=== PATIENT | male | born 1950 | race Caucasian/White ===

== ENCOUNTER 2024-07-18 06:51 | Observation (INO) ==
--- NOTE | 2024-06-19 11:07 | PAT Medication Instructions ---
Medication Instructions Date of Service June 19, 2024 Home Medications Medication Instructions Recorded albuterol sulfate 90 mcg/actuation 2 inh inhalation QID PRN shortness 04/21/24 aerosol inhaler of breath or wheezing #8.5 grams gabapentin 400 mg capsule 400 mg PO BID #60 caps 04/21/24 tramadol 50 mg tablet 50 mg PO Q4H PRN pain #120 tabs 04/21/24 Wheeled Walker #1 ea 06/09/24 albuterol sulfate 90 mcg/actuation aerosol inhaler 2 inh inhalation QID PRN shortness of breath or wheezing aspirin 81 mg tablet,delayed release (Adult Low Dose Aspirin) 81 mg PO QPM atorvastatin 80 mg tablet 80 mg PO QPM etodolac 500 mg tablet 500 mg PO BID gabapentin 400 mg capsule 400 mg PO BID primidone 50 mg tablet 100 mg PO BID tamsulosin 0.4 mg capsule 0.4 mg PO HS tramadol 50 mg tablet 50 mg PO Q4H PRN pain dutasteride 0.5 mg capsule 0.5 mg PO QPM ASK your surgeon for instructions etodolac 500 mg tablet 500 mg PO BID ASK your prescriber and surgeon aspirin 81 mg tablet,delayed release (Adult Low Dose Aspirin) 81 mg PO QPM Take morning of surgery With a small sip of water, OTHERWISE NOTHING TO EAT OR DRINK AFTER MIDNIGHT: albuterol sulfate 90 mcg/actuation aerosol inhaler 2 inh inhalation QID PRN shortness of breath or wheezing (use if needed; please bring rescue inhaler with you to hospital day of surgery if possible) gabapentin 400 mg capsule 400 mg PO BID primidone 50 mg tablet 100 mg PO BID tramadol 50 mg tablet 50 mg PO Q4H PRN pain (if needed) Take evening before surgery albuterol sulfate 90 mcg/actuation aerosol inhaler 2 inh inhalation QID PRN shortness of breath or wheezing (if needed) atorvastatin 80 mg tablet 80 mg PO QPM gabapentin 400 mg capsule 400 mg PO BID primidone 50 mg tablet 100 mg PO BID tamsulosin 0.4 mg capsule 0.4 mg PO HS tramadol 50 mg tablet 50 mg PO Q4H PRN pain (if needed) dutasteride 0.5 mg capsule 0.5 mg PO QPM Other Notes If you have any questions please call us at [phone] or [phone] or [phone] or [phone]
--- NOTE | 2024-06-27 09:34 | Anesthesiology Consultation ---
Date of Service June 27, 2024 Assessment & Plan (1) Encounter for pre-operative examination: - Infectious disease screening: Per assessment on 06/27/24- No known recent infectious disease contacts or current infectious disease symptoms. - Outpatient joint assessment: Pt currently scheduled for inpatient pathway. If surgeon requests review for outpatient joint pathway, patient is not recommended candidate for outpatient joint program from anesthesia standpoint based on available information. Chart Review Chart Review: Acceptable Risk for Surgery and Patient seen in Pre Admission Testing Teaching & Discussion Pre-Anesthesia Teaching/Discussion Notes: Instructed NPO after midnight before surgery,except medications with 15 cc of water. Medication instructions provided according to the PAT guidelines. History Surgery Operation Date: 07/18/24 12:30 Proposed Procedures p Left Total Knee Arthroplasty - Scottie Chapin MD Height/Weight Height: 5 ft 9 in Weight: 103.4 kg Allergies Allergy/AdvReac Type Severity Reaction Status Date / Time Iodinated Contrast Media AdvReac Sweating, Verified 06/24/24 11:53 "woozy" Medications Home Medications Medication Instructions Recorded Confirmed Last Taken albuterol sulfate 90 mcg/actuation 2 inh inhalation QID PRN shortness 04/21/24 06/19/24 Unknown aerosol inhaler of breath or wheezing #8.5 grams aspirin 81 mg tablet,delayed 81 mg PO QPM 04/21/24 06/19/24 Unknown release (Adult Low Dose Aspirin) atorvastatin 80 mg tablet 80 mg PO QPM 04/21/24 06/19/24 Unknown etodolac 500 mg tablet 500 mg PO BID 04/21/24 06/19/24 Unknown gabapentin 400 mg capsule 400 mg PO BID #60 caps 04/21/24 06/19/24 Unknown primidone 50 mg tablet 100 mg PO BID 04/21/24 06/19/24 Unknown tamsulosin 0.4 mg capsule 0.4 mg PO HS 04/21/24 06/19/24 Unknown tramadol 50 mg tablet 50 mg PO Q4H PRN pain #120 tabs 04/21/24 06/19/24 Unknown Wheeled Walker #1 ea 06/09/24 Unknown dutasteride 0.5 mg capsule 0.5 mg PO QPM 06/19/24 06/19/24 Unknown Past Medical History Medical History BPH (benign prostatic hyperplasia) Emphysema lung Essential tremor Hands H/O asbestos exposure History of elevated PSA History of stroke ~2020, "in his eye" No residual effects Reason for aspirin Hx of diverticulitis of colon no recent issues Hx of gastroesophageal reflux (GERD) Hx of hyperlipidemia NITIN on CPAP Compliant Exercise / Class Metabolic Activity II 4-5 Yardwork/Stairs/Walk up hill Past Family History Family History Son Asthma Father Prostate cancer Lung cancer Coronary heart disease Diabetes Dyslipidemia Heart disease Hypertension Lung disease Other Cancer Denies family history of Rheumatoid arthritis Sudden SIDS (sudden syndrome) Ovarian cancer Deep vein thrombosis Osteoporosis Cerebral aneurysm Alzheimer disease Bipolar disorder Clotting disorder Crohn's disease Dementia Depression Kidney disease Myocardial infarction Osteoarthritis Breast cancer Schizophrenia Congenital kidney disease Gestational diabetes COPD (chronic obstructive pulmonary disease) Colorectal cancer Pulmonary embolism Ulcerative colitis Colonic polyp Stroke Cystic kidney disease Past Surgical History Surgical History History of ear surgery "years ago," left Hx of arthroscopy of left knee Hx of colonoscopy Past Anesthesia History No Hx of Anesthesia Complications and No Family Hx of Anesthesia Complications History of PONV No Hx of PONV and No Hx of Motion Sickness Social History Smoking Status: Current every day smoker Smoking cigarettes per day: 10 cigs/day Do You Dip or Chew Tobacco: No Hx Alcohol Use: Yes alcohol intake frequency: other (very rarely) Hx Substance Use: No substance use type: does not use Review of Systems Patient denies chest pain, shortness of breath, dyspnea on exertion, fever, chills, cough, wheezing, palpitations. Physical Exam Vital Signs BP 125/77 P 67 TEMP 98.7 SP02 97%RA RESP 16 Physical Full cervical extension range of motion. Full TMJ range of motion. TMD > 3.5 finger breaths Mallampati Score II Dentition: intact Lungs: clear throughout to auscultation Cardiac: regular rate and rhythm, no murmurs noted Spine: normal Carotid arteries: negative bruit Extremities: no LE edema Lab Results Anesthesia Preop Results Results Anesthesia Widget: WBC 6.03 K/ul (4.8-10.8) 06/27/24 Hgb 17.0 g/dl (14.0-18.0) 06/27/24 Hct 49.0 % (42.0-52.0) 06/27/24 Plt 165 K/uL (130-400) 06/27/24 Na 141 mmol/L (136-145) 06/27/24 K 4.4 mmol/L (3.5-5.1) 06/27/24 Cl 110 mmol/L (98-107) H 06/27/24 CO2 27 mmol/L (21-32) 06/27/24 BUN 15 mg/dl (6-23) 06/27/24 Creat 0.86 mg/dl (0.6-1.4) 06/27/24 Glucose Level 95 mg/dl (70-99(Fasting)) 06/27/24 PT 10.4 Seconds (9.0-12.0) 06/27/24 PTT 29 Seconds (21-31) 06/27/24 INR 1.0 (0.9-1.1) 06/27/24 Blood Type A Positive 06/27/24 Antibody Screen NEGATIVE 06/27/24 Testing Electrocardiogram Date: 06/27/24 NSR at 60bpm. NS IVCD. Chest X-Ray Date: 06/27/24 FINDINGS: Heart size and pulmonary vasculature are normal. There are mild diffuse peripheral reticular opacities. No consolidation or pleural effusion. No pneumothorax. IMPRESSION: Mild pulmonary fibrosis. No acute pneumonia seen.
--- NOTE | 2024-07-12 09:58 | History & Physical Report ---
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 He is failed conservative measures and would like to proceed with left knee replacement. Plan: We are to take him to the operating room to do a left total knee replacement. The risks and benefits of this procedure explained. Informed consent was obtained. He will hold his NSAIDs that 10 days preop. Will use aspirin for DVT prophylaxis. He is planned to be discharged to home using the [facility] home health program. History of Present Illness Chief Complaint: . Persistent left knee pain and discomfort. Primary Care Provider: Marisel Mckee DO . 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 Got a long history of left knee pain discomfort described to gotten worse over time. He does have a history of a left knee arthroscopy done in [place] about 8 years ago. Over time he developed increased pain discomfort is in the left knee. Is global pain. The more he is up and on it the more it hurts. He takes anti-inflammatories with some degree of relief but still not acceptable. He has been through extensive conservative Allergies Allergy/AdvReac Type Severity Reaction Status Date / Time Iodinated Contrast Media AdvReac Sweating, Verified 07/11/24 10:36 "woozy" Home Medications Medication Instructions Recorded Confirmed Type albuterol sulfate 90 mcg/actuation 2 inh inhalation QID PRN shortness 04/21/24 07/11/24 Rx aerosol inhaler of breath or wheezing #8.5 grams aspirin 81 mg tablet,delayed 81 mg PO QPM 04/21/24 07/11/24 History release (Adult Low Dose Aspirin) atorvastatin 80 mg tablet 80 mg PO QPM 04/21/24 07/11/24 History etodolac 500 mg tablet 500 mg PO BID 04/21/24 07/11/24 History gabapentin 400 mg capsule 400 mg PO BID #60 caps 04/21/24 07/11/24 Rx primidone 50 mg tablet 100 mg PO BID 04/21/24 07/11/24 History tamsulosin 0.4 mg capsule 0.4 mg PO HS 04/21/24 07/11/24 History Wheeled Walker #1 ea 06/09/24 07/11/24 Rx dutasteride 0.5 mg capsule 0.5 mg PO QPM #90 caps 07/04/24 07/11/24 Rx tramadol 50 mg tablet 50 mg PO Q4H PRN pain #120 tabs 07/04/24 07/11/24 Rx Past Med/Surg History Problem List Encounter for pre-operative examination Degenerative arthritis of knee, bilateral BPH (benign prostatic hyperplasia) History of elevated PSA Essential tremor Emphysema lung NITIN on CPAP Diverticulitis Medical History History of stroke ~2019, "in his eye" No residual effects Reason for aspirin Hx of gastroesophageal reflux (GERD) Hx of hyperlipidemia NITIN on CPAP Compliant History of elevated PSA Essential tremor Hands Emphysema lung Hx of diverticulitis of colon no recent issues BPH (benign prostatic hyperplasia) H/O asbestos exposure Surgical History Hx of colonoscopy Hx of arthroscopy of left knee History of ear surgery "years ago," left Family History Son Asthma Father Prostate cancer Lung cancer Coronary heart disease Diabetes Dyslipidemia Heart disease Hypertension Lung disease Other Cancer Denies family history of Rheumatoid arthritis Sudden SIDS (sudden syndrome) Ovarian cancer Deep vein thrombosis Osteoporosis Cerebral aneurysm Alzheimer disease Bipolar disorder Clotting disorder Crohn's disease Dementia Depression Kidney disease Myocardial infarction Osteoarthritis Breast cancer Schizophrenia Congenital kidney disease Gestational diabetes COPD (chronic obstructive pulmonary disease) Colorectal cancer Pulmonary embolism Ulcerative colitis Colonic polyp Stroke Cystic kidney disease Social History Smoking Status: Current every day smoker Tobacco Type: Cigarettes Age Started Using Tobacco: 21; packs per day: 1; Cigarettes Per Day: 10 cigs/day; Second Hand Exposure: Yes (hx as child); Do You Dip or Chew Tobacco: No; Hx Alcohol Use: Yes Hx Substance Use: No Preferred Language: Sinhala Communication Ability: Effective Visual Impairment: Limited Hearing Ability: Normal Cushion Cover Inspector Required: No Beliefs That Will Affect Care: None marital status: Current Living Situation: Spouse Current Living Situation Comment: retired current occupational status: retired How many Children do You have: 2 Feels Safe at Home: Yes Childhood Exposure to Second-Hand Smoke: Yes Diet: regular caffeine: Yes during the past year weight has: remained stable Dental Care, Regularly: No Physical Activity Frequency: Does not Exercise Seatbelt Use: always Do you think of yourself as: straight/heterosexual Sexual Activity: has been sexually active within the last 12 months Gender Identity: Male Assistive Devices: CPAP and Glasses Review of Systems All systems reviewed & are unremarkable except as noted in HPI & below. Physical Exam . Physical examination reveals a pleasant middle-aged male. Examination of the left knee reveals slight varus alignment to his knee. He is tender over the medial joint line. A little bit of bony hypertrophy. Small knee effusion. Range of motion is about 5-1 25. No instability. No particular pain with hip motion. He is neurovascular intact. Constitutional WD/WN, vitals as above Neck trachea midline, no thyromegaly Respiratory normal respiratory effort, lungs clear to auscultation Cardiovascular RRR, no murmur, no edema Gastrointestinal (Abdomen) normal bowel sounds, soft, nontender, no hepatosplenomegaly Results & Data Results & Data Laboratory Results . Diagnostic Findings . X-rays left knee reviewed. She has advanced left knee DJD. Got tricompartment disease. Subchondral sclerosis. There is got complete loss of joint space medially. He is got similar but less severe disease of the right knee. PG Care Time/CCT Total # of Minutes Spent Total Time Spent with Patient: Total time spent is greater than 50% in coordination of care (as documented) at patient's floor/unit and/or counseling patient: Coding Level of Care Code None Diagnoses Degenerative arthritis of knee, bilateral M17.0
[~2024-07-18 06:51] MED LIST: BUPIVACAINE 0.5 % 5 MG/1 ML PF 10ML VIAL ONE; ROPIVACAINE 0.5% 5 MG/ML 30 ML VIAL ONE
--- NOTE | 2024-07-18 06:53 | History & Physical Bridge Note ---
Date of Service July 18, 2024 History & Physical Bridge Note I have examined the patient, reviewed the History & Physical and in the interval since the performance of the History & Physical I have noted the following changes of clinical significance: no changes noted
[2024-07-18] MEDS ORDERED: fentaNYL citrate PF 100 MCG/2 ML VIAL ONE (07:09)
[2024-07-18] MEDS ORDERED: MIDAZOLAM HCL 1 MG/ML 2ML VIAL ONE (07:09)
[2024-07-18] MEDS ORDERED: PROPOFOL IV EMULSION 10 MG/ML 20 ML VIAL IV ONE ×2 (07:09→09:42)
[2024-07-18] MEDS: ACETAMINOPHEN 500 MG TAB PO SCH ×2 (07:34→13:30)
[2024-07-18] MEDS: LR 500ML BOLUS, THEN 15ML/HR IV SCH (07:34)
[2024-07-18] MEDS: CeleBREX 200 MG CAP PO SCH (07:35)
[2024-07-18] MEDS: LR 60ML/HR IV SCH (07:35)
[2024-07-18] MEDS: dexAMETHasone**PF** 10 MG/ML VIAL IV SCH (07:35)
[2024-07-18] MEDS: METOCLOPRAMIDE HCL 10 MG TABLET PO SCH (07:35)
[2024-07-18] MEDS: FAMOTIDINE 20 MG TAB PO SCH (07:35)
[2024-07-18] MEDS ORDERED: ATROPINE SULFATE 0.1 MG/ML 10ML SYR IV PRN (08:41)
[2024-07-18] MEDS ORDERED: fentaNYL citrate PF 100 MCG/2 ML VIAL IV PRN (08:41)
[2024-07-18] MEDS ORDERED: ONDANSETRON INJ 2 MG/ML 2 ML VIAL IV PRN ×2 (08:41→12:57)
[2024-07-18] MEDS ORDERED: ePHEDrine sulfate 50 MG/ML AMP IV PRN (08:41)
[2024-07-18] MEDS: ceFAZolin 2000MG 2,000 MG/15 ML SYR IV SCH ×2 (09:32→17:44)
[2024-07-18] MEDS ORDERED: ONDANSETRON INJ 2 MG/ML 2 ML VIAL ONE (09:40)
[2024-07-18] MEDS ORDERED: ePHEDrine sulfate 50 MG/5 ML SYR ONE (09:47)
[2024-07-18] MEDS: ROPIV 0.5% 246mg, Ketorolac 30mg, EPINEPHrine 0.5mg in NSS INFIL SCH (10:10)
[2024-07-18] MEDS: ORTHO JOINT ANESTHETIC ONE (10:11)
[2024-07-18] MEDS: TRANEXAMIC ACID 1,000 MG **IV Intra-op IV SCH (10:33)
--- NOTE | 2024-07-18 11:42 | Operative Report ---
PG Post Operative Report Pre & Post Diagnosis Operation Date: 07/18/24 08:50 Pre-Op Diagnosis: Left Knee Degenerative Joint Disease Post-Op Diagnosis: Left Knee Degenerative Joint Disease I identified the patient and participated in the time-out.: Yes Procedure Operation Date: 07/18/24 08:50 Actual Procedures p Left Total Knee Arthroplasty(Left) - Scottie Chapin MD Surgeon Scottie Chapin MD Patch Sander Raymundo Fritz PA-C Estimated Blood Loss 50 Findings Consistent with Post-Op Diagnosis It did appear he had some degree of a vast necrosis of the medial femoral condyle with full-thickness cartilage loss. Dressing knee was fairly standard grade 4 [id number] disease particularly medially. Specimens Left knee sent for pathology. Anesthesia Type Spinal MAC Complications none Disposition Accompanied Patient To Recovery: No Indications Patient is a 73-year-old active gentleman who has a history of gradual progressive increasing pain and discomfort in both knees left side a bit worse than the right. Does have a history of a knee arthroscopy done 8 years ago. He failed all conservative measures. X-rays show advanced knee DJD. He elected proceed with total knee arthroplasty. Description of Procedure Operative implants consist of: 1. Biomet Vanguard size 72.5 left posterior stabilized femoral component. 2. Biomet size 79 tibial tray. 3. 12 mm posterior stabilized polyethylene insert. 4. 31 x 8 all poly patella. The patient was taken to the op room, identified, placed on the operating table in the supine position. All contact areas were appropriately padded. IV antibiotics fibra anesthesia team. Spinal anesthetic and adductor canal block had been provided in the holding area. A left thigh tent was then placed. Left lower extremities then prepped and draped in usual sterile fashion. The left leg was elevated and exsanguinated with use of an Esmarch and a turn was placed at 300 mmHg. An anterior approach to the left knee was then performed to longitudinal incision centered over the patella. Sharp dissection was got through subcutaneous tissue down the extensor mechanism. A medial parapatellar arthrotomy incision was made. Some subperiosteal dissection was carried out medially. The fat pad was dissected from Neath patella tendon. The lateral patellofemoral ligament was released. Patella subluxated laterally and the knee was flexed. The osteophytes taken off distal femur. The ACL and PCL were then released from distal femur and the tibia subluxated anteriorly. The external treatment LYMErix then placed on the anterior face the tibia and adjusted 14 mm medially. Proximal tibial cut was made remove out of millimeter or 2 of bone from most efficient aspect medial tibial plateau. The tibia sized to a size 79. Attention drawn the femur. The distal femur then with a sharp drill. Intramedullary canal was suction. A left 6 degree valgus cutting guide was placed. The distal femoral cutting block was pinned in place. Distal femoral cut was made to take an additional 3 mm of bone off distal femur. The femur was then sized to a size 72.5. The AP cutting block was pinned parallel to the epicondylar axis which was 5 degrees of external rotation. The anterior cut, anterior chamfer, posterior cut, posterior chamfer cuts were made. The box cutting guide was placed in the just slight lateral and the box cut was made. The knee was flexed. The remnants of the medial and lateral menisci were excised. The osteophytes taken off the posterior aspect the femur. A trial femoral component was placed. The tibial tray was pinned in Sunni external rotation and the drill and stem punch use great defect in proximal tibia for the tibial tray. The knee was then trialed and the 12 mm insert fit most appropriately. Attention drawn the patella. The patella was cleaned of all soft tissues. Patella thickness measured 24 mm in thickness was cut down to 14. Was sized to a size 31 patella. The lug holes were drilled for 31 patella. The lateral osteophytes removed. Patella button was placed. Knee was taken through range of motion patella tracked nicely with no thumbs test. Attention was then drawn toward placement permanent components. NuPrep all trial components were removed. Bone plug was placed in the distal femur plate a double batch Palacos G cement was mixed. Biomet Vanguard size 72.5 left posterior stabilized femoral component, a size 79 tibial tray, 12 mm posterior Byce polyethylene insert, and a 31 x 8 all poly patella then cemented in place. The knee was brought out into full extension till cement hardened. Final cement check was then performed. The pericapsular tissues were injected with a total of 100 cc of Ortho mix. The patient did receive 1 g tranexamic ac id. The tourniquet was then let down for final tourniquet time of 70 minutes. Hemostasis surgeries electrocautery. Extensor Meclomen then closed with combination 1 PDS suture #1 Vicryl suture in a [id number] fashion. Extensor Meclomen checked found to be intact with subcutaneous tissue then closed with 2 Dexon suture in a buried interrupted fashion skin was closed skin katie. Leg was then cleaned and dried and sterile dressed with Xeroform, 4 fours, sterile cast padding, Brent bandage were applied. Patient was then transferred to the recovery room in stable condition. Patient tolerated procedure well and there were no complications. Raymundo Fritz, my physician diploma medical assistant, was present for the entire procedure. His assistance was required for proper patient positioning, prepping and draping, surgical exposure, retraction, perform the technical details of the operation, placement of the implants, closure of the incision site and placement of postoperative sterile bandage. I attest to the content of the Intraoperative Record and any orders documented therein. Any exceptions are noted below.
--- NOTE | 2024-07-18 12:25 | Anesthesiology Progress Note ---
Date of Service July 18, 2024 Anesthesia Post Procedure Vital Signs Vital Signs: Temp Pulse Resp BP Pulse Ox O2 Del Method O2 Flow Rate 07/18/24 12:15 72 14 115/75 94 Nasal Cannula 2 07/18/24 12:00 67 16 110/69 93 Nasal Cannula 2 07/18/24 11:50 36.4 C L 73 16 121/71 94 Nasal Cannula 2 07/18/24 11:40 80 18 99/70 L 93 Nasal Cannula 3 07/18/24 11:30 36.6 C 82 16 100/60 94 Nasal Cannula 3 07/18/24 07:10 36.4 C L 66 24 137/81 94 Room Air Notes Mental Status: alert / awake / arousable Patient Amnestic to Procedure: Yes Nausea / Vomiting: adequately controlled Pain: adequately controlled Airway Patency, RR, SpO2: stable & adequate BP & HR: stable & adequate Hydration State: stable & adequate Neuraxial Anesthesia: was administered and sensory block is resolving Anesthetic Complications: no major complications apparent
--- NOTE | 2024-07-18 12:41 | XRay Report ---
XR knee LT 1 or 2V routine CLINICAL HISTORY: Surgical Post Op COMPARISON: None FINDINGS: Left knee prosthesis shows no hardware complication. There is expected soft tissue gas. Sk in katie are present. IMPRESSION: Unremarkable postoperative exam. ACT 112: Negative or not required by law. Electronically signed by: Colin Abdi M.D. 07/18/2024 12:39 PM
[2024-07-18] MEDS ORDERED: bisacodyL 10 MG SUPP PR PRN (12:57)
[2024-07-18] MEDS ORDERED: MAGNESIUM HYDROXIDE SUSP 30 ML UDC PO PRN (12:57)
[2024-07-18] MEDS ORDERED: ALUMINUM/MAGNESIUM SUSP 30 ML UDC PO PRN (12:57)
[2024-07-18] MEDS ORDERED: ALBUTEROL HFA 8 GM INHALER INH PRN (12:57)
[2024-07-18] MEDS ORDERED: HYDROmorphone INJ 0.5 MG/0.5 ML SYR IV PRN (12:57)
[2024-07-18] MEDS ORDERED: METOCLOPRAMIDE HCL INJ 5 MG/ML 2 ML VIAL IV PRN (12:57)
[2024-07-18] MEDS ORDERED: NALOXONE HCL 0.4 MG/1 ML VIAL/CARP IV PRN (12:57)
[2024-07-18] MEDS: KETOROLAC TROMETHAMINE 15 MG/ML VIAL IV SCH (13:30)
[2024-07-18] MEDS: KETOROLAC 30 MG/ML VIAL ONE (13:52)
[2024-07-18] MEDS: ASCORBIC ACID 500 MG TAB PO SCH (17:44)
[2024-07-18] MEDS: TRANEXAMIC ACID / 0.7% NACL 1,000 MG/100 ML BAG IV SCH (18:24)
[2024-07-18] MEDS: TAMSULOSIN HCL 0.4 MG CAP PO SCH (20:23)
[2024-07-18] MEDS: SENNA 8.6 MG TAB PO SCH (20:23)
[2024-07-18] MEDS: PRIMIDONE 50 MG TAB PO SCH (20:23)
[2024-07-18] MEDS: DOCUSATE SODIUM 100 MG CAP PO SCH (20:23)
[2024-07-18] MEDS: ATORVASTATIN 40 MG TAB PO SCH (20:23)
[2024-07-18] MEDS: FINASTERIDE 5 MG TAB PO SCH (20:23)
[2024-07-18] MEDS: GABAPENTIN 400 MG CAP PO SCH (20:23)
[2024-07-18] MEDS: ASPIRIN 81 MG ECTAB PO SCH (20:23)
[2024-07-18] MEDS ORDERED: SENNA 8.6 MG TAB PO SCH (21:00)
[2024-07-19] MEDS: oxyCODONE HCL IR 5 MG TAB (IMMEDIATE RELEASE) PO PRN (00:30)
[2024-07-19 04:22] VITALS: TEMP 97.9
[2024-07-19 07:12] LABS: Hematocrit (blood only) 41.4 % (42.0-52.0); Hemoglobin 14.3 g/dl (14.0-18.0); Mean Corpuscular Hemoglobin 31.4 pg (25.0-34.0); Mean Corpuscular Hgb Conc 34.5 g/dL (32.0-36.0); Mean Corpuscular Volume 90.8 fL (80.0-100.0); Mean Platelet Volume 9.8 fL (9.4-12.4); Platelet Count 168 K/uL (130-400); RDW Coefficient of Variation 12.5 % (11.5-14.5); RDW Standard Deviation 41.2 fL (36.4-46.3); Red Blood Count 4.56 M/uL (4.70-6.10); White Blood Count 9.52 K/ul (4.8-10.8)
[2024-07-19 07:18] VITALS: BP 116/72; PULSE 51; RESP 18; O2SAT 94
[2024-07-19 08:02] LABS: BUN Creatinine Ratio 19.4 (10-20); Calcium 8.5 mg/dl (8.6-10.3); Creatinine Clr Calc Pharmacy 76.6 ml/min; Potassium 3.8 mmol/L (3.5-5.1)
--- NOTE | 2024-07-19 08:15 | Orthopedic Progress Note ---
Date of Service July 19, 2024 Assessment & Plan (1) Status post left knee replacement: Plan: 73-year-old gentleman postop day 1 from left knee replacement doing well. Pains controlled. He is neurologically intact. Plan: 1. DVT prophylaxis including thigh-high teds, SCDs, aspirin twice a day. 2. PT/OT. Weight-bear as tolerated. Left total knee protocol. 3. Pain control. Doing okay with current pain regimen. 4. Disposition. Plan is to discharge to home with some home health if he does okay in therapy today. Admission and Anticipated Discharge Date Admission Date: July 18, 2024 Subjective 73-year-old gentleman postop day 1 from a left knee replacement. He is doing pretty well. Had a reasonable night. Pains controlled. No chest pain or shortness of breath. Not feeling dizzy or lightheaded. Hoping to go home today. Physical Exam Physical Exam: Physical nation is a pleasant middle-age male. He is sitting up in bed and eating his breakfast looks comfortable. Examination of left leg reveals leg to be well aligned. Dressings clean dry and intact he can dorsiflex and plantarflex his foot appropriately. He is neurologically intact. Respiratory: normal respiratory effort, lungs clear to auscultation Cardiovascular: RRR, no murmur, no edema Gastrointestinal (Abdomen): normal bowel sounds, soft, nontender, no hepatosplenomegaly Results & Data Vital Signs (Past 12 Hours) Vital Signs Temp Pulse Pulse Resp BP Pulse Ox O2 Del Method 07/19/24 07:18 36.6 C 51 L 18 116/72 94 Room Air 07/19/24 03:50 36.6 C 57 L 16 161/93 H 95 Room Air 07/18/24 23:12 36.8 C 59 L 16 114/69 94 Room Air Laboratory Results Hemoglobin is 14.3. MAC is 41.4. Electrolytes are stable
[2024-07-19] MEDS: dexAMETHasone 10 MG in SYRINGE 0 ML IV SCH (08:29)
[2024-07-19] MEDS: MULTIVITAMIN TAB PO SCH (08:30)
--- NOTE | 2024-07-23 15:50 | Discharge Summary ---
Date of Service July 23, 2024 Admission HPI (Per Admitting) . 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 Got a long history of left knee pain discomfort described to gotten worse over time. He does have a history of a left knee arthroscopy done in [place] about 8 years ago. Over time he developed increased pain discomfort is in the left knee. Is global pain. The more he is up and on it the more it hurts. He takes anti-inflammatories with some degree of relief but still not acceptable. He has been through extensive conservative. 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 He is failed conservative measures and would like to proceed with left knee replacement. Plan: We are to take him to the operating room to do a left total knee replaceme nt. The risks and benefits of this procedure explained. Informed consent was obtained. He will hold his NSAIDs that 10 days preop. Will use aspirin for DVT prophylaxis. He is planned to be discharged to home using the [facility] health program. Admission Exam (Per Admitting) . Physical examination reveals a pleasant middle-aged male. Examination of the left knee reveals slight varus alignment to his knee. He is tender over the medial joint line. A little bit of bony hypertrophy. Small knee effusion. Range of motion is about 5-1 25. No instability. No particular pain with hip motion. He is neurovascular intact. Constitutional WD/WN, vitals as above Neck trachea midline, no thyromegaly Respiratory normal respiratory effort, lungs clear to auscultation Cardiovascular RRR, no murmur, no edema Gastrointestinal (Abdomen) normal bowel sounds, soft, nontender, no hepatosplenomegaly Diagnostic Findings . X-rays left knee reviewed. She has advanced left knee DJD. Got tr icompartment disease. Subchondral sclerosis. There is got complete loss of joint space medially. He is got similar but less severe disease of the right knee. Principal Diagnosis Same as "Discharge Diagnosis" noted below under Discharge Instructions. Discharge Exam Physical Exam: Physical nation is a pleasant middle-age male. He is sitting up in bed and eating his breakfast looks comfortable. Examination of left leg reveals leg to be well aligned. Dressings clean dry and intact he can dorsiflex and plantarflex his foot appropriately. He is neurologically intact. Respiratory: normal respiratory effort, lungs clear to auscultation Cardiovascular: RRR, no murmur, no edema Gastrointestinal (Abdomen): normal bowel sounds, soft, nontender, no hepatosplenomegaly Discharge Data Procedures Performed Operation Date: 07/18/24 08:50 Actual Procedures p Left Total Knee Arthroplasty(Left) - Scottie Chapin MD Ordered Studies 07/18/24 05:00 US - OR guided needle placemen Routine Hospital Course (1) Status post left knee replacement: Plan On July 18, 2024 Nick arrived at [facility] operating room and underwent a left total knee replacement without complications. Patient had an adductor canal block and spinal anesthetic for the procedure. Postoperatively, patient was transferred to the general orthopedic floor in stable condition and eventually started onto aspirin 81 mg twice daily for DVT prophylaxis as appropriate. Patient's hospital course was uneventful. On postoperative day #1, patient's vital signs were stable and pain was well-controlled. Patient was able to participate well with physical therapy, safely performing the necessary ambulation and range of motion exercises and properly demonstrating ADL tasks. Patient was then discharged home in stable condition, with home health PT services to begin. Patient will follow-up with orthopedics in 2 to 3 weeks for postoperative care. PG Care Time/CCT Total # of Minutes Spent Total Time Spent with Patient: Total time spent is greater than 50% in coordination of care (as documented) at patient's floor/unit and/or counseling patient: Discharge Plan Discharge Items Patient Disposition: Home - Home Health Services Reason For Visit: Left Knee Osteoarthritis Discharge Diagnosis: Left Knee Replacement Activity: Per Instructions section Weightbearing: Full weightbearing Non-emergency contact: Surgeon Call non-emergency contact if: you have any medication questions Follow-up/Referrals: Marisel Mckee DO [Primary Care Provider] - Diet: Regular Addtl Attending Provider Instructions: ACTIVITY RECOMMENDATIONS: Diet: * You may resume previous diet. Physical Therapy: * You will go to physical therapy three times each week for four to six weeks after your surgery in order to regain your knee range of motion and to retrain your knee to work properly. * It is just as important to make sure you are getting your knee perfectly straight as it is to regain your knee bend. * Taking a pain pill an hour before therapy can help you have a more productive and comfortable therapy session. Home Exercise: * You were shown a series of exercises (heel props, heel slides, etc.) in the hospital. Do these exercises three to four times each day including the exercises you were shown in physical therapy. Walking: * Get up and walk several times each day. For the first four weeks, try not to stand or walk for more than one hour at a time. If you do stand or walk for more than one hour, you will not hurt anything, but your knee and leg will likely swell. * As you feel comfortable, you may change from the walker or crutches to a cane and then to independent walking. MEDICATIONS: New Medicine: * You will likely be taking one or more of these medications: 1. Oxycodone - A quick and shorter-acting pain medication. Take one to two tablets every six hours to lessen your pain. 2. Aspirin - Thins your blood to lessen the chance of forming a blood clot. * The most common side effects of pain medicine and iron are nausea and constipation. If nausea or constipation is too much of a problem or if you have any questions about your new medicines or doses, call [facility] at . We will try to help you manage these issues. "VERY IMPORTANT TO READ AND REVIEW" Pain: * The immediate post-operative period after knee replacement surgery is often quite painful. * You are given a prescription for pain medicine. You should take it, as directed, when you need it, especially before physical therapy and before going to bed. Pain that interferes with sleep is very common and can last several months. * You will likely need pain medicine for the first four to six weeks. It will not stop all of the pain. The pain will lessen and as you feel better, you may change to milder pain medicine such as Tylenol. * The most common side effects of pain medicine are nausea and constipation, so don't take more than you need. SPECIAL CARE INSTRUCTIONS: TEDs/Elastic Stockings: * The white elastic stockings help limit swelling and prevent blood clots from forming in your legs. The more you wear them, the more they work. * Wear them for six weeks after knee replacement surgery and four weeks after partial knee replacement. Incision Site Care: * Remove dressing postoperative day 2 and then shower. Keep direct shower pressure off the incision site. * After showering, cover katie with dry gauze and change daily or more frequently if the dressing is getting saturated with drainage. * Use the HENRRY stockings to hold dressing in place. DO NOT apply tape on the skin. * May completely stop using bandage if wound is dry and no drainage * Katie are removed between 2 and 3 weeks post-op. If your follow-up appointment is made before 2 weeks, please have your appointment re- scheduled. It is too early to remove the katie. Prevention of Infection: * Take antibiotics one hour before any dental cleaning, dental work, urological procedure, gastrointestinal procedure or any invasive surgery in order to prevent your new joint from getting infected. * You may get the antibiotics from the doctor performing the procedure or you may call our office at [phone] before and we will call in a prescription to the pharmacy of your choice. Things to Watch For: * Drainage from the incision site that occurs more than one week after your surgery. * Severely increased knee/leg pain or swelling. * Increased redness at the incision site. * Fever above 102 degrees Fahrenheit. * Unusual chest pain or shortness of breath. * Unusual pain or burning with urination. Call [facility] at [phone] with any of the above problems or if you have any questions about your medicines or recovery. FOLLOW UP VISIT: Make an appointment to see your doctor for approximately two weeks after surgery for a progress check and staple removal by calling the office at [phone]. Pending Studies at Discharge: No Stand-Alone Forms: My [facility], Smoking Cessation Medications and DC Order Prescriptions: Continued (DME) Wheeled Walker Misc See Rx Instructions .MEDSUPPLY Qty: 1 0RF Rx Instructions: As directed dutasteride 0.5 mg capsule 0.5 mg PO QPM Qty: 90 3RF ondansetron 4 mg tablet,disintegrating 4 mg PO Q8 PRN (Reason: nausea) Qty: 20 1RF Patient Comments: post op Rx Instructions: Take as needed for nausea sennosides [Senokot] 8.6 mg tablet 8.6 mg PO BID 14 Days Qty: 28 0RF Patient Comments: post op Rx Instructions: Take two times a day to prevent/treat constipation acetaminophen [Tylenol Extra Strength] 500 mg tablet 1,000 mg PO TID 30 Days Qty: 180 0RF Patient Comments: post op Rx Instructions: Take 3 times per day to lessen pain. aspirin [Jose Low Dose Aspirin] 81 mg tablet,delayed release (DR/EC) 81 mg PO BID 45 Days Qty: 90 0RF Patient Comments: post op Rx Instructions: Take to prevent blood clots. tamsulosin 0.4 mg capsule 0.4 mg PO HS aspirin [Adult Low Dose Aspirin] 81 mg tablet,delayed release (DR/EC) 81 mg PO QPM atorvastatin 80 mg tablet 80 mg PO QPM primidone 50 mg tablet 100 mg PO BID albuterol sulfate 90 mcg/actuation HFA aerosol inhaler 2 inh inhalation QID PRN (Reason: shortness of breath or wheezing) Qty: 8.5 0RF Patient Comments: only used temporarily when sick Held etodolac 500 mg tablet 500 mg PO BID Hold Instructions: Resume on 07/25/24. Discontinued tramadol 50 mg tablet 50 mg PO Q4H PRN (Reason: pain) Qty: 120 0RF Patient Comments: takes every day QID No Action oxycodone 5 mg tablet 5 - 10 mg PO Q6 PRN (Reason: pain) Qty: 40 0RF Patient Comments: post op Rx Instructions: Take as needed for pain gabapentin 400 mg capsule 400 mg PO BID Qty: 60 2RF Admission Data Admit Date/Time: 07/18/24 11:35 Attending Provider: Scottie Chapin Admit Provider: Scottie Chapin Primary Care Provider: Marisel Mckee Other Providers: [facility] Other Interventions: Discharge Summary Assessment (RN) Last Done: 07/19/24 10:12
== END 2024-07-19 10:57 | disposition home health service (06) ==
LOC: PACUINP 06:51 → ASU 06:51 → 3W 14:46
DX: Z79.899 Other long term (current) drug therapy; F17.210 Nicotine dependence, cigarettes, uncomplicated; Z91.041 Radiographic dye allergy status; M17.12 Unilateral primary osteoarthritis, left knee; Z86.73 Personal history of transient ischemic attack (TIA), and cerebral infarction without residual deficits; G47.33 Obstructive sleep apnea (adult) (pediatric); Z79.51 Long term (current) use of inhaled steroids; N40.0 Benign prostatic hyperplasia without lower urinary tract symptoms; J43.9 Emphysema, unspecified; Z79.82 Long term (current) use of aspirin